=== PATIENT | female | born 1945 | race Caucasian/White ===

== ENCOUNTER 2019-02-26 10:02 | Day surgery (SDC) | payer MEDICARE, OTHER ==
[~2019-02-26 10:02] MED LIST: ACET1TAB33 PO; AZEL137S3 NS; BACL10TA PO; CETI10TA16 PO; CRESTOR5 MG PO; DIAZ5TAB4 PO; FLUT9.9S NS; FURO40TA4 PO; GABA300T3 PO; HYDR-2761 PO; HYDROmorphone 2 MG/ML VIAL IV PRN; IV RINGERS,LACTATED 1000ML 1,000 ML IV SCH; LIDOCAINE 1% PF 2 ML VIAL. ID PRN; LISI-130 PO; LOPE2TAB27 PO; METO-247 PO; MONT10TA49 PO; MORPHINE SULFATE 2 MG/ML VIAL. IV PRN; NYST15CR2 TP; OMEP40CA5 PO; ONDA4TAB12 PO; ONDANSETRON PF 4 MG/2 ML VIAL. IV PRN; PRAM0.255 PO; TRAM50TA PO; TRIA15OI TP; VERA240C2 PO; ZALE10CA PO; fentaNYL PF VIAL 100 MCG/2 ML VIAL IV PRN
[2019-02-26] MEDS ORDERED: OXYMETAZOLINE 0.05% NASAL SPRAY 30ML BOTTLE. NS PRN (11:15)
[2019-02-26] MEDS ORDERED: ceFAZolin 2GM PREMIX 2 GM/50 ML BAG IV ONE (13:00)
[2019-02-26] MEDS ORDERED: LIDOCAINE 2% PF 5 ML VIAL. ONE (13:15)
[2019-02-26] MEDS ORDERED: ONDANSETRON PF 4 MG/2 ML VIAL. ONE (13:15)
[2019-02-26] MEDS ORDERED: DEXAMETHASONE SOD PHOS 4 MG/ML VIAL ONE (13:15)
[2019-02-26] MEDS ORDERED: FAMOTIDINE 20 MG/2 ML VIAL ONE (13:15)
[2019-02-26] MEDS ORDERED: PROPOFOL 20 ML IV ONE (13:15)
[2019-02-26] MEDS ORDERED: fentaNYL PF VIAL 100 MCG/2 ML VIAL ONE (13:16)
[2019-02-26] MEDS ORDERED: ROCURONIUM 50 MG/5 ML VIAL. ONE (13:16)
[2019-02-26] MEDS ORDERED: MUPIROCIN 2 % NASAL OINTMENT 22GM TUBE. ONE (13:27)
[2019-02-26] MEDS ORDERED: LIDOCAINE 1%/EPI 1:100,000 20 ML VIAL. ONE (13:27)
[2019-02-26] MEDS ORDERED: EPINEPHrine VIAL 30 MG/30 ML VIAL ONE (13:27)
[2019-02-26] MEDS ORDERED: OXYMETAZOLINE 0.05% NASAL SPRAY 30ML BOTTLE. NS ONE (13:27)
[2019-02-26] MEDS ORDERED: PHENYLEPHRINE 0.25% NASAL SPRAY 15ML BOTTLE. NS ONE (13:27)
[2019-02-26] MEDS ORDERED: GELATIN SPONGE SIZE 12-7MM SPONGE. ONE (13:28)
[2019-02-26] MEDS ORDERED: SEVOFLURANE > 120 MINUTES. IH ONE (15:11)
[2019-02-26] MEDS ORDERED: ePHEDrine PF IN SALINE 50 MG/10 ML SYRINGE. IV ONE (15:19)
[2019-02-26] MEDS ORDERED: NEOSTIGMINE METHYLSULFATE 5 MG/5 ML SYRINGE. ONE (16:06)
[2019-02-26] MEDS ORDERED: GLYCOPYRROLATE 1 MG/5 ML VIAL. ONE (16:06)
--- NOTE | 2019-02-26 16:47 | PDOC4 ---
IMMEDIATE POST OP NOTE Date: Feb 26, 2019 Pre-Op Diagnosis right chronic pansinusitis Post-Op Diagnosis same as above Procedure Performed revision right functional endoscopic sinus surgery under image guidance navigation to include right medial maxillary antrostomy, right total ethmoide ctomy, right frontal sinusotomy, right sphenoidotomy Surgeon Dr. Tere Harrison [employer] Specialist none Anesthesiologist Dr. Matta Anesthesia Type: General Blood Loss 20mL Specimens Obtained right frontal culture, right maxillary culture Findings 1. Purulent discharge filling right maxillary/sphenoid sinuses 2. Right frontal sinus completely obstructed and filled with copious amounts of mucoid discharge 3. Scarring of right sphenoid and ethmoid sinuses inferiorly 4. Residual ethmoid air cells along anterior skull base 5. Left frontal sinus ostia is slightly narrowed but patent. All other sinuses on left are patent and without infection. Complications none Operative Note #[id number] TERE HARRISON MD Feb 26, 2019 16:47
--- NOTE | 2019-02-26 16:56 | PDOC1 ---
History and Physical Date of Admission Date of Admission DATE: 02/26/19 TIME: 12:00 Identification/Chief Complaint Chief Complaint right chronic pansinusitis History of Present Illness History of Present Illness 74 year old female presents for surgical treatment of right chronic pansinusitis. Patient has history of previous FESS in 2015. She had been doing well for many years. However, she suffered severe sinus infection in December 2018. She has been treated with multiple courses of antibiotics with incomplete resolution of symptoms. CT imaging has shown ongoing complete opacification of right frontal sinus and inflammation of right ethmoid/m axillary/sphenoid sinuses. Patient has continued to suffer from severe headaches, purulent nasal discharge. Past Medical History Cardiovascular: HTN, Hyperlipidemia GI: GERD Heme/Onc: Anemia NOS Psych: Anxiety ENT: Sincusitis Past Surgical History Past Surgical History: Total knee replacement (bilateral), Other (fess) Social History Smoke: No ALCOHOL: none Drugs: None Current Medications Current Medications Current Medications Ondansetron HCl (Zofran) 4 mg PRN Q6HRS PRN IV NAUSEA/VOMITING; Start 02/26/19 at 07:00; Stop 02/27/19 at 06:59 Fentanyl Citrate (Fentanyl 2ml Vial) 25 mcg PRN Q5MIN PRN IV MILD PAIN 1-3; Start 02/26/19 at 07:00; Stop 02/27/19 at 06:59 Fentanyl Citrate (Fentanyl 2ml Vial) 50 mcg PRN Q5MIN PRN IV MODERATE TO SEVERE PAIN; Start 02/26/19 at 07:00; Stop 02/27/19 at 06:59 Morphine Sulfate (Morphine Sulfate) 1 mg PRN Q10MIN PRN IV SEVERE PAIN 7-10; Start 02/26/19 at 07:00; Stop 02/27/19 at 06:59 Ringer's Solution 1,000 ml @ 30 mls/hr Q24H IV Last administered on 02/26/19at 10:44; Start 02/26/19 at 07:00; Stop 02/26/19 at 18:59 Lidocaine HCl (Xylocaine-Mpf 1% 2ml Vial) 2 ml PRN 1X PRN ID IV START; Start 02/26/19 at 07:00; Stop 02/27/19 at 06:59 Hydromorphone HCl (Dilaudid) 0.5 mg PRN Q10MIN PRN IV SEV PAIN, Second choice; Start 02/26/19 at 07:00; Stop 02/27/19 at 06:59 Oxymetazoline HCl (Afrin) 2 spray PRN Q1HR PRN NS excessive bleeding from nose Last administered on 02/26/19at 12:16; Start 02/26/19 at 11:15 Cefazolin Sodium/ Dextrose 50 ml @ 100 mls/hr 1X ONCE IV Last administered on 02/26/19at 14:53; Start 02/26/19 at 13:00; Stop 02/26/19 at 13:29; Status DC Propofol 20 ml @ As Directed STK-MED ONCE IV ; Start 02/26/19 at 13:15; Stop 02/26/19 at 13:16; Status DC Dexamethasone Sodium Phosphate (Decadron) 4 mg STK-MED ONCE .ROUTE ; Start 02/26/19 at 13:15; Stop 02/26/19 at 13:16; Status DC Famotidine (Pepcid Vial) 20 mg STK-MED ONCE .ROUTE ; Start 02/26/19 at 13:15; Stop 02/26/19 at 13:16; Status DC Lidocaine HCl (Lidocaine Pf 2% Vial) 5 ml STK-MED ONCE .ROUTE ; Start 02/26/19 at 13:15; Stop 02/26/19 at 13:16; Status DC Ondansetron HCl (Zofran) 4 mg STK-MED ONCE .ROUTE ; Start 02/26/19 at 13:15; Stop 02/26/19 at 13:16; Status DC Rocuronium [place] (Zemuron) 50 mg STK-MED ONCE .ROUTE ; Start 02/26/19 at 13:16; Stop 02/26/19 at 13:17; Status DC Fentanyl Citrate (Fentanyl 2ml Vial) 100 mcg STK-MED ONCE .ROUTE ; Start 02/26/19 at 13:16; Stop 02/26/19 at 13:17; Status DC Mupirocin (Bactroban) 22 aditya STK-MED ONCE .ROUTE ; Start 02/26/19 at 13:27; Stop 02/26/19 at 14:27; Status DC Oxymetazoline HCl (Afrin) 120 spray STK-MED ONCE NS Last administered on 02/26/19at 15:49; Start 02/26/19 at 13:27; Stop 02/26/19 at 14:27; Status DC Epinephrine HCl (Adrenalin) 30 mg STK-MED ONCE .ROUTE Last administered on at 15:48; Start 02/26/19 at 13:27; Stop 02/26/19 at 14:27; Status DC Phenylephrine HCl (Enoch-Synephrine 0.25% Nasal) 60 spray STK-MED ONCE NS ; Start 02/26/19 at 13:27; Stop 02/26/19 at 14:27; Status DC Lidocaine/ Epinephrine (LIDOCAINE 1%-EPI 1:100,000 Multi-Dose) 20 ml STK-MED ONCE .ROUTE Last administered on 02/26/19at 15:49; Start 02/26/19 at 13:27; Stop 02/26/19 at 14:27; Status DC Gelatin (Gelfoam Size 12-7mm) 1 each STK-MED ONCE .ROUTE ; Start 02/26/19 at 13:28; Stop 02/26/19 at 14:28; Status DC Sevoflurane (Ultane) 90 ml STK-MED ONCE IH ; Start 02/26/19 at 15:11; Stop 02/26/19 at 15:12; Status DC Ephedrine Sulfate (ePHEDrine PF IN SALINE SYRINGE) 50 mg STK-MED ONCE IV ; Start 02/26/19 at 15:19; Stop 02/26/19 at 15:20; Status DC Neostigmine Methylsulfate (Neostigmine Methylsulfate) 5 mg STK-MED ONCE .ROUTE ; Start 02/26/19 at 16:06; Stop 02/26/19 at 16:07; Status DC Glycopyrrolate (Robinul) 1 mg STK-MED ONCE .ROUTE ; Start 02/26/19 at 16:06; Stop 02/26/19 at 16:07; Status DC Active Scripts Active Reported Zaleplon 10 Mg Capsule 10 Mg PO HS Verapamil Er (Verapamil Hcl) 240 Mg Cap24h.pel 180 Mg PO HS Triamcinolone Acetonide 0.1% Oint (Triamcinolone Acetonide) 15 Gm Oint...g. 1 Aditya TP PRN DAILY PRN MIX WITH EUCERIN DIRECTED BY PHYSICIAN Tramadol Hcl 50 Mg Tablet 50 Mg PO Q6HRS PRN Ondansetron Odt (Ondansetron) 4 Mg Tab.rapdis 8 Mg PO BID PRN Omeprazole 40 Mg Capsule.dr 40 Mg PO DAILY Nystatin-Triamcinolone Cream (Nystatin/Triamcin) 15 Gm Cream..g. 15 Gm TP PRN DAILY PRN Singulair Tablet (Montelukast Sodium) 10 Mg Tablet 10 Mg PO HS Mirapex (Pramipexole Di-Hcl) 0.25 Mg Tablet 0.375 Mg PO DAILYBFRLUN Metoprolol Succinate ( Xl ) (Metoprolol Succinate) 100 Mg Tab.er.24h 100 Mg PO DAILY Loperamide (Loperamide Hcl) 2 Mg Tablet 2 Mg PO PRN DAILY PRN Lisinopril 40 Mg Tablet 40 Mg PO DAILY Hydrocodone-Apap 5-325 (Hydrocodone Bit/Acetaminophen) 1 Tab Tablet 1 Tab PO PRN Q6HRS PRN Horizant (Gabapentin Enacarbil) 300 Mg Tab.er.24h 300 Mg PO HS Furosemide 40 Mg Tablet 40 Mg PO DAILY Flonase Allergy Relief (Fluticasone Propionate) 9.9 Ml [place].susp 1 Sprays NS DAILY Diazepam 5 Mg Tablet 5 Mg PO PRN DAILY PRN Crestor (Rosuvastatin Calcium) 5 Mg Tablet 5 Mg PO HS Cetirizine Hcl 10 Mg Tablet 10 Mg PO DAILY Baclofen 10 Mg Tablet 10 Mg PO HS Azelastine Hcl 137 Mcg/0.137 Ml [place].pump 1 [place] NS BID Acetaminophen-Cod #3 Tablet (Acetaminophen/Codeine Phosphate) 1 Each Tablet 1 Tab PO PRN Q6HRS PRN Allergies Allergies: Coded Allergies: prochlorperazine (Verified Allergy, Intermediate, 02/26/19) COULDNT CONTROL BODY Iodine and Iodide Containing Produc (Verified Adverse Reaction, Intermediate, 02/26/19) FLUSHED citalopram (Verified Adverse Reaction, Intermediate, Nausea and Vomiting, 02/26/19) NERVOUSNESS iron (Verified Adverse Reaction, Intermediate, Nausea and Vomiting, 02/26/19) CAN'T CONTROL BODY/MOVE prednisone (Verified Adverse Reaction, Intermediate, Shortness of Air, 02/26/19) COULDN'T CONTROL BODY, PALPITATIONS promethazine (Verified Adverse Reaction, Intermediate, Swelling, 02/26/19) MOUTH DROOP, CONFUSION rotigotine (Verified Adverse Reaction, Intermediate, 02/26/19) MENTAL CONFUSION valacyclovir (Verified Adverse Reaction, Intermediate, Shortness of Air, 02/26/19) DRY MOUTH cyclobenzaprine (Verified Adverse Reaction, Unknown, Unknown, 02/26/19) nefazodone (Verified Adverse Reaction, Unknown, 02/26/19) CONFUSION, COULDNT CONTROL BODY Physical Exam General: Alert, Oriented X3, Cooperative HEENT: Atraumatic, PERRLA, EOMI, Mucous membr. moist/pink Lungs: Clear to auscultation Heart: S1S2, RRR Abdomen: Normal bowel sounds, Soft Rectal Exam: not examined Extremities: No clubbing, No cyanosis, No edema Neuro: Normal gait, Normal speech, Cranial nerves 3-12 NL Psych/Mental Status: Mental status NL, Mood NL Vitals Vitals Vital Signs Date Time Temp Pulse Resp B/P (MAP) Pulse Ox O2 Delivery O2 Flow Rate FiO2 02/26/19 10:40 97.1 57 20 96 97.1 02/26/19 10:25 136/63 Room Air VTE Prophylaxis Ordered VTE Prophylaxis Devices: Yes VTE Pharmacological Prophylaxi: Contraindicated Assessment/Plan Assessment/Plan 74 year old female with chronic right pansinusitis that has been refractory to medical management. - To OR today for right revision functional endoscopic sinus surgery under image guided navigation. Informed consent obtained today. CLAUDIA MURPHY MD Feb 26, 2019 16:56
[2019-02-26] MEDS ORDERED: oxyCODONE/APAP 5/325 1 TAB TABLET PO ONE (17:15)
[2019-02-26 17:31] VITALS: BP 118/74
[2019-02-26] MEDS ORDERED: OXYC1TAB15 PO (17:35)
--- NOTE | 2019-02-26 17:54 | OP ---
DATE OF SURGERY: 02/26/2019 PREOPERATIVE DIAGNOSIS: Right-sided chronic pansinusitis. POSTOPERATIVE DIAGNOSIS: Right-sided chronic pansinusitis. PROCEDURE PERFORMED: Revision right-sided functional endoscopic sinus surgery under image guidance navigation to include revision right medial maxillary antrostomy, revision right total ethmoidectomy, revision frontal sinusotomy and revision right sphenoidotomy. SURGEON: Tere Harrison MD. ANESTHESIA: General endotracheal anesthesia. ESTIMATED BLOOD LOSS: 20 mL. SPECIMENS OBTAINED: Right frontal contents were sent for culture as well as right maxillary sinus contents were sent for culture. INDICATIONS FOR SURGERY: The patient is a 74-year-old female who previously underwent functional endoscopic sinus surgery in 2016. The patient had been doing very well for many years; however, since 12/2018, has been having recurrent headaches and purulent nasal discharge. CT imaging has shown complete opacification of the right frontal sinus and periodic inflammation of the right-sided maxillary, ethmoid and sphenoid sinuses that have been refractory to medical management. The decision was made the patient undergo the above procedure after the risks, benefits, alternatives to surgery were thoroughly discussed with the patient and informed consent was obtained. INTRAOPERATIVE FINDINGS: 1. Purulent discharge filling the right maxillary, inferior ethmoid and sphenoid sinuses. 2. The right frontal sinus outflow tract was completely obstructed with scar tissue. The frontal sinus was filled with copious amounts of mucoid discharge. 3. Scarring along the right sphenoid and inferior ethmoid sinuses limiting the nasal drainage. 4. There were residual ethmoid air cells along the skull base anteriorly further narrowing the frontal sinus outflow tract. 5. On the left side, the frontal ostia was slightly narrowed, but patent. All of the other sinuses were widely patent and without significant infection. DESCRIPTION OF THE PROCEDURE: The patient was brought back to the operating room for anesthesia and given general mask anesthetic and intubated in a standard fashion. The patient was then turned 90 degrees in the room. The [employer] image guidance system was set up and verified for accuracy. This was used throughout the case to ensure complete dissection and for patient safety. Afrin-soaked pledgets were then inserted into the patient's nasal cavity bilaterally and the patient was prepped and draped in standard fashion. Using a 0-degree scope, I visualized the patient's right nasal cavity. The patient was found to have cathy purulent discharge emanating from the ethmoid and maxillary sinuses. This was aspirated and cultured. There was noted scar tissue along the inferior aspect of the sphenoid sinus as well as the inferior ethmoid sinus and the microdebrider was used to lyse this. I further widen the maxillary antrostomy posteriorly using Richard-Cut forceps and I further widened the sphenoid ostia inferiorly using Kerrison forceps. In doing so, I did encounter the septal branch of the posterior sphenopalatine artery and hemostasis was controlled with suction Bovie electrocautery. After this was completed, I used a 30-degree scope to visualize the patient's skull base and frontal sinus outflow tract, which I knew was obstructed. There was significant scar tissue covering the frontal sinus outflow tract. I used the frontal seeker and image guidance navigation to break through the scar tissue to enter into the frontal sinus outflow tract. I further widened this using suction as well as the microdebrider and I also removed the residual ethmoid air cells off the skull base, which were severely narrowing the frontal sinus outflow tract. After this was completed, I aspirated the frontal sinus. There was thick mucoid discharge filling the frontal sinus on this side. This was completely aspirated and copious amounts were found in this region. I then ensured using giraffe forceps to remove the bone of the suprabullar ethmoid air cells that were present along the skull base that narrowing the frontal sinus outflow tract and I also used the microdebrider to thin the polypoid inflammation of this region. I ensured all the scar tissue was completely removed and the frontal sinus outflow tract was widely patent as possible. After this was completed, I ensured a complete dissection of all the sinuses on this side. I then used normal saline and did a powered irrigation of the frontal, sphenoid, ethmoid and maxillary sinuses on this side. I thoroughly aspirated all the sinuses to ensure that the infection was completely gone. I then placed a Propel contour implant within the frontal sinus outflow tract and I placed a Propel standard implant within the posterior ethmoid and sphenoid ostia on this side. My attention was then taken to the left nasal cavity. I visualized the frontal sinus outflow tract using a 30-degree scope. Although this was narrowed, the frontal sinus outflow tract was widely patent and could easily be aspirated. There was no evidence of infection. On visualization of the skull base and confirmation with the image guidance system, there was some thickened osteolytic changes to the bone of the posterior skull base; however, there was no residual ethmoid air cells appreciated. The sphenoid ostia and the maxillary antrostomy were widely patent on this side. All of the sinuses were irrigated and aspirated, but there was no obvious infection present. After this was completed, the nasal cavity was aspirated bilaterally. The patient was turned back over to anesthesia and extubated without complication. Sponge, needle and instrument counts were correct at the end of the case. COMPLICATIONS: None. DISPOSITION: Stable and transferred to recovery room. TERE HARRISON MD DR: MAE/yovana JOB#: [id number] / [id number]
== END 2019-02-26 18:06 | disposition home or self-care (01) ==
LOC: SURG 10:02
PROVIDERS: ATTEND Otolaryngology
DX: J32.4 Chronic pansinusitis (principal); I10 Essential (primary) hypertension; E78.5 Hyperlipidemia, unspecified; F41.9 Anxiety disorder, unspecified; K21.9 Gastro-esophageal reflux disease without esophagitis; D64.9 Anemia, unspecified; Z96.653 Presence of artificial knee joint, bilateral
CPT/HCPCS: 31253; 31256; 31257; 61782; 87071; 87075; A7015; C1713; J0171; J0696; J1100; J2001; J2405; J2704; J2710; J3010; J3490